=== PATIENT | male | born 1980 | race Caucasian/White ===

== ENCOUNTER 2016-12-31 00:08 | Inpatient (IN) | payer OTHER, MEDICAID ==
[2016-12-31] VITALS (34 sets, daily range): BP systolic 74–138; BP diastolic 47–98; PULSE 60–94; RESP 11–23; O2SAT 93–100
[~2016-12-31] VITALS: Ht 165.1 cm; Wt 97.3 kg
[~2016-12-31 00:08] MED LIST: CRB200TCR PO; CRB400TCR PO; GABA600T PO; LAMO100T PO; LORA1TAB PO; TAMS0.4C98 PO
--- NOTE | 2016-12-31 06:30 | NUR ---
ADMISSION NOTE MALE PT ADMITTED FOR RENAL EMBOLIZATION. DISCUSSED PLAN OF CARE WITH PT AND FAMILY. SEE ADMIT AND FLOW SHEET
[2016-12-31] MEDS ORDERED: 0.9% Sodium Chloride 1,000 ML ONE (07:25)
[2016-12-31] MEDS ORDERED: Heparin 1,000 Unit/mL 10 mL Inj ONE ×2 (07:26→10:33)
[2016-12-31 07:28] LABS: BASOPHILS % (AUTO) 0.3 % (0-3); EOSINOPHILS % (AUTO) 2.9 % (0-5); MONOCYTES % (AUTO) 15.2 % (4-12); Mean Corpuscular Hemoglobin 31.1 pg (27.0-35.0); Mean Corpuscular Volume 91.5 fL (81-100); NEUTROPHILS % (AUTO) 56.8 % (40-74); Platelet Count 172 bil/L (150-400)
[2016-12-31] MEDS ORDERED: LORA10CA PO (07:35)
[2016-12-31 07:51] LABS: INR 0.91 ratio
[2016-12-31] MEDS: 0.9% Sodium Chloride 1,000 ML IV SCH ×3 (08:00→21:22)
[2016-12-31] MEDS ORDERED: fentaNYL-PF 50 mCg/mL 2 mL Inj ONE ×2 (08:53→09:52)
[2016-12-31] MEDS ORDERED: levoFLOXacin 500 mg/100 mL D5W Premix IV ONE (09:06)
[2016-12-31] MEDS ORDERED: Heparin 5,000 Unit/mL Inj ONE (09:39)
[2016-12-31] MEDS ORDERED: Heparin 5,000 Units/500 mL NS Premix IV ONE (10:31)
--- NOTE | 2016-12-31 13:43 | NUR ---
AT 13:00 JAVIER PAULINO R.N ATTEMPTED TO ASSIST PATIENT WITH LUNCH TRAY BY INCREASING HEAD OF BED TO APPROX 30 DEGREES WHEN PATIENT EXPERIENCED SUDDEN HYPOTENSION, DIAPHORESIS AND COOL/ CLAMMY SKIN ON FOREHEAD. NORMAL SALINE BEGAN BOLUS, WITH COMPLETION OF 1 LITRE BAG. PT ASHEN COLORED AT FIRST, NO COMPLAINTS GROIN PAIN, NO HEMATOMA ON PALPATION AND NO C/O NAUSEA OR OTHERWISE FEELING FAINT. DR WONG CONTACTED, ULTRASOUND OF GROIN COMPLETED AND PRELIMINARY RESULT NEGATIVE FOR FEMORAL BLEED FROM RIGHT FEMORAL ACCESS SITE. HCT SENT ALSO. WITHIN 15 MINUTES PATIENT BACK TO BASELINE WITH IMPROVEMENT IN COLOR TO BASELINE. PT PLACED FLAT NOW FROM TRENDELENBERG POSITION DURING EVENT. PATIENT'S MOTHER AT BEDSIDE AND UPDATED ACCORDINGLY.
--- NOTE | 2016-12-31 14:13 | NUR ---
HCT RESULT CALLED TO DR. WONG EARLIER, THERE HAS BEEN A 5.3 POINT DECREASE IN HCT SINCE THIS AM. PT TAKEN TO CT.DR WONG HERE TO SEE PATIENT AND HIS MOM. THERE IS SOME BLEEDING AROUND KIDNEY.TYPE AND CROSS 4 UNITS ORDERED, PT WILL BE ADMITTED TO HOSPITAL. STAT HCT ORDERED FOR NOW.PT STABLE, CONVERSANT, WARM AND DRY. HE IS KEPT NPO.
--- NOTE | 2016-12-31 14:38 | DRSVH ---
PROCEDURE: 1. Left renal 1st order selective arteriography. 2. Super selective 4th order arteriography of a left inferior pole renal artery branch arising from t he superior branch of the left renal artery. 3. Embolization of a 4th order arterial branch arising from the superior branch of the left renal art asndra. 4. Superselective 6th order arteriography of a left inferior pole renal artery branch arising from th e inferior branch of the left renal artery. 5. Embolization of a 6th order arterial branch arising from the inferior branch of the left renal art sandra. 6. Conscious sedation x164 minutes. INDICATIONS: Tuberous sclerosis; renal angiomyolipomas. COMPARISON: [facility], XA, EMBOLIZATION VIA CATH, 08/23/2008, 13:07. [facility], CT, ABDOMEN W&WO CONTRAST, 10/07/2016, 11:24. [facility], CT, ABDOMEN WITH CONTRAST, 12/28/2013, 9:34. TECHNIQUE: Informed, written consent from the patient was obtained prior to the procedure. Patient wa s brought to the angiography suite, and conscious sedation was administered intravenously by [facility] staff, while continuous cardiorespiratory monitoring was performed. Maximal sterile barrier t echnique, hand hygiene and skin preparation were followed. A mask, sterile gown, sterile gloves, a la rge sterile sheet, hand hygiene, and 2% chlorhexidine or iodine was utilized for skin antisepsis. The bilateral groins were prepped and draped sterilely, and the skin and subcutaneous tissues overlying the right common femoral artery were infused with lidocaine. The right common femoral artery was acce ssed retrograde with a micropuncture set. A 6 Irish sheath was advanced. A 6 Irish C2 guide cathete r was advanced and was used to select the left renal artery, which was injected for selective renal a rteriography. A 4 Irish microcatheter was advanced through the guide catheter over an 014 wire into a 4th order arterial branch arising from the superior branch of the left renal artery and was injecte d for superselective arteriography of an inferior pole vessel. Embolization with [place] material was pe rformed until static flow was obtained within this branch. Subsequently, the 4 Irish microcatheter w as used to select a 6th order arterial branch arising from the inferior branch of the left renal christina ry supplying the inferior pole. Embolization with [place] material was performed until static flow was o btained. Repeat angiography was performed. FLUOROSCOPY TIME: 40.4 minutes FINDINGS: Embolization coils within the interpolar kidney are present secondary to prior embolization procedure. There are multifocal regions of abnormal vasculature throughout the left renal parenchyma , indicating the patient's known multifocal angiomyolipomas, largest of which are in the inferior bubba e. Injection of the 4th order vessel arising from the superior branch of the left renal artery demons trates abnormal vasculature within the inferior pole, consistent with the angiomyolipoma, with resolu tion of filling of this branch following embolization. Injection of the 6th order vessel arising from the inferior branch of the left renal artery demonstrates abnormal vasculature and pseudoaneurysm fo rmation within the inferior pole, with no further flow in this vessel following embolization. IMPRESSION: 1. Status post embolization of 2 angiomyolipomas within the inferior pole, one of which is supplied b y a 4th order branch of the superior moiety of the left renal artery, the other of which is supplied by a 6th order branch of the inferior moiety of the left renal artery. Dictated by: Elijah Rice M.D. on 12/31/2016 at 14:00 Approved by: Elijah Rice M.D. on 12/31/2016 at 14:36
--- NOTE | 2016-12-31 14:43 | DRSVH ---
PROCEDURE: CT KUB ([id number]) INDICATIONS: POST PROCEDURE TECHNIQUE: Noncontrast 5 mm thick sections acquired from the diaphragms to the symphysis. 5 mm thick coronal an d sagittal reformats were then performed. For radiation dose reduction, the following was used: aut omated exposure control, adjustment of mA and/or kV according to patient size. COMPARISON: [facility], CT, ABDOMEN W&WO CONTRAST, 10/07/2016, 11:24. [facility], X A, EMBOLIZATION ARTERIAL SYSTEM, 12/31/2016, 9:04. FINDINGS: Image quality: Excellent. Lung bases: Lung bases are clear. Heart size is normal. Urinary system: Multiple bilateral fat-containing renal masses are present, largest of which are loc ated within the left interpolar and inferior pole kidney, as before. There are embolization coils wit hin the left interpolar kidney as before. There is new high density embolic material within 2 separat e vessels within the inferior pole left kidney. There is a new, small to moderate amount of left warren nephric high density fluid. There is extravasated contrast surrounding the exophytic angiomyolipoma i nvolving the inferior pole left kidney, which was embolized prior to the examination. Other solid organs: Liver and spleen are normal in size. Gallbladder is within normal limits. Panc reas is normal in contours. No adrenal nodules. Peritoneum and bowel: Unenhanced bowel loops demonstrate normal wall thickness and caliber. No free fluid or air. Nodes and vessels: No retroperitoneal or mesenteric adenopathy by size criteria. Aorta and inferior vena cava are normal in caliber. Abdominal wall: No ventral hernias. Pelvis: No free pelvic fluid. No inguinal hernias or adenopathy. Bones: No suspicious bony lesions. Scattered benign-appearing sclerotic foci within the lumbosacral spine are present. No vertebral body compression fractures. IMPRESSION: 1. [id number] amount of left perinephric hemorrhage, which likely occurred prior to completion of embolization of the inferior pole angiomyolipoma. Serial hematocrits will be monitored, with repe at imaging, if clinically warranted. Patient will be admitted for overnight observation. Dictated by: Elijah Rice M.D. on 12/31/2016 at 14:37 Approved by: Elijah Rice M.D. on 12/31/2016 at 14:42
--- NOTE | 2016-12-31 14:51 | DRSVH ---
PROCEDURE: US DUPLEX DOPPLER UNILATERAL LEG ARTERIES, RIGHT INDICATIONS: POST PROCEDURE TECHNIQUE: Color and pulse Doppler interrogation was performed of the right lower extremity arterial system, wit h image documentation. COMPARISON: None. FINDINGS: Limited sonography of the right groin demonstrates no abnormalities. No fluid collection or masses are seen. Normal appearance of the right common femoral artery and vein as is demonstrated with spec tral and color-flow Doppler. IMPRESSION: No right groin pseudoaneurysm. Dictated by: Mario Daniel [facility] Interpreted: Nancy Amanda MD on 12/31/2016 at 14:50 Transcribed by: ARLEN on 12/31/2016 at 14:51 Approved by: Nancy Amanda MD, PhD on 12/31/2016 at 16:28
--- NOTE | 2016-12-31 17:00 | NUR ---
TRANSFER NOTE TRANSFERED TO CCU. REPORT GIVEN
[2016-12-31] MEDS ORDERED: Ondansetron 2 mg/mL 2 mL Inj IVPUSH PRN (17:15)
[2016-12-31] MEDS ORDERED: Alum-Mag Hydrox-Simeth 30 mL Suspension PO PRN (17:15)
[2016-12-31] MEDS ORDERED: Polyethylene Glycol (PEG) 17 Gm Powder PO PRN (17:15)
--- NOTE | 2016-12-31 17:24 | PCM.HPMED ---
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 They were monitoring the angiomyolipoma AMLs) in his kidneys due to known complications of bleeding despite lesions typically benign. There were 3 dominant AMLs on the LEFT kidney: superior mass is approx 7 cm, anterior and lower pole mass is approx 5 cm, lower pole and posterior is approx 5 cm. Plan was to have Interventional Radiologist ablate these dominant masses and was scheduled for this procedure today I received a call from Dr Rice to admit the patient as post operative labs showed some drop in HCT and also nurses noted some brief episode of hypotension. He performed an ultrasound of the groin and showed no pseudoaneurysm and a CT scan confirmed finding of left perinephric hemorrhage. Patient is not currently on any blood thinners and no history of bleeding. Review of Systems: Pertinent positives as noted in HPI. All other systems were reviewed and are negative Allergies Coded Allergies: Penicillins (Verified Allergy, Mild, 12/31/16) cefaclor (Verified Allergy, Mild, 12/31/16) Uncoded Allergies: CEPHALOSPORIN (Allergy, Mild, 07/30/09) Home Medications From Rio Lee [phone] 1980 11/11/2016 01:15 PM Page: 10/08 Lamictal (Lamotrigine) 100 Mg Tablet prescribed by outside provider Lorazepam 1 Mg Tablet prescribed by outside provider Neurontin (Gabapentin) 600 Mg Tablet prescribed by outside provider tamsulosin 0.4 mg capsule take 1 capsule by oral route every day Tegretol Xr (Carbamazepine) 400 Mg Tab Er 12H prescribed by outside provider Tegretol XR 200 mg tablet,extended release take 1 tablet by oral route every 12 hours PMH Tuberous Sclerosis Seizure disorder Brain tumor as an Renal Angiomyolipoma . Surgical History Left kidney tumor ablation Family History Father had Tuberous sclerosis Social History Hx Alcohol Use: No Hx Substance Use: No Hx Tobacco Use: No Living Arrangement: with Family (lives with Mom) Exam Vital Signs Vital Sign - Last Date Time Temp Pulse Resp B/P Pulse Ox O2 Delivery O2 Flow Rate FiO2 12/31/16 17:00 87 16 121/76 100 Room Air 12/31/16 11:36 36.9 Exam General: Alert, Oriented X3, Cooperative, No acute Distress Eyes: PERRLA, Scleral Anicteric Mouth: Mouth Normal, Mucous Membranes Moist/Coaling Neck: Supple, no Thyromegaly, trachea central. Chest & Lungs: Clear to auscultation & percussion, No adventitious breath sounds, no crackles, no wheeze Cardiovascular: Normal S1, Normal S2, No Murmurs/Rubs/Gallops, Regular Rate/ Rhythm, (No JVD, no peripheral edema) Pulses: Radial (present and equal), Dorsalis Pedi (present and equal) Abdomen: Soft, Non-tender, Non-distended, Normoactive bowel tones. Musculoskeletal: Unremarkable. Normal range of motion, no swollen or erythematous joints Extremities: No edema, no cyanosis, no clubbing. Skin: No rashes. Warm and dry, no erythematous areas. typical findings of Tuberous sclerosis of bumps on his face Neurological: Grossly neurologically intact, Normal Speech, Sensation Intact Chronically right hand and arm weakness with deformity of wrist Lymphatic: Lymph nodes Cervical and Axillary not palpable. Lab and Diagnostics Labs Laboratory Tests Test 12/31/16 07:00 12/31/16 13:16 12/31/16 14:50 12/31/16 16:52 White Blood Count 3.8th/mm3 (3.8-10.1) Red Blood Count 4.82mil/mm3 (4.40-5.80) Hemoglobin 15.0g/dL (13.8-17.2) Hematocrit 44.1% (41.0-50.0) 38.7% (41.0-50.0) 40.8% (41.0-50.0) 38.9% (41.0-50.0) Mean Corpuscular Volume 91.5fL (81-100) Mean Corpuscular Hemoglobin 31.1pg (27.0-35.0) Mean Corpuscular Hemoglobin Concent 34.0% (32.0-37.0) Red Cell Distribution Width 11.4% (12.3-15.4) Platelet Count 172bil/L (150-400) Neutrophils (%) (Auto) 56.8% (40-74) Lymphocytes (%) (Auto) 24.5% (14-46) Monocytes (%) (Auto) 15.2% (4-12) Eosinophils (%) (Auto) 2.9% (0-5) Basophils (%) (Auto) 0.3% (0-3) Prothrombin Time 9.7sec (8.1-12.5) Prothromb Time International Ratio 0.91ratio Sodium Level 142mEq/L (134-144) Potassium Level 4.3mEq/L (3.5-5.2) Chloride Level 104mEq/L (97-108) Carbon Dioxide Level 23mmol/L (18-29) Blood Urea Nitrogen 15mg/dL (6-20) Creatinine 1.04mg/dL (0.76-1.27) Estimat Glomerular Filtration Rate 85mL/min (>59) Glucose Level 104mg/dL (60-99) Calcium Level 9.5mg/dL (8.5-10.1) Result Diagram: 12/31/16 1652 12/31/16 0700 X-Rays, CTs and MRIs CT KUB 12/31 IMPRESSION: 1. [id number] amount of left perinephric hemorrhage, which likely occurred prior to completion of embolization of the inferior pole angiomyolipoma. Serial hematocrits will be monitored, with repeat imaging, if clinically warranted. Patient will be admitted for overnight observation. Dictated by: Elijah Rice M.D. on 12/31/2016 at 14:37 Approved by: Elijah Rice M.D. 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 Present on admission Possible due to procedure. No evidence of groin pseudoaneurysm on ultrasound. No evidence of gastrointestinal bleeding - case discussed with Dr Rice plans to monitor in hospital - plan to repeat imaging if Hgb continues to drop indicating ongoing bleeding 2. Acute anemia due to blood loss. Present on admission - trending H/H every q 4 hours - transfusion planned if Hgb < 7 or symptomatic including hypotension 3. Left Kidney multiple angiomyolipoma s/p Status post embolization of 2 angiomyolipomas within the inferior pole, - post operative orders as per Dr Rice - follow up with Urology clinic as outpatient 4. Tuberous Sclerosis with Seizure disorder Mother reported patient not having any seizure episodes recently - continue Lamictal, Tegretol and Ativan PRN - Acetaminophen as needed for mild pain/fever/headache - Bowel regimen as needed - Antiemetic as needed Patient admitted under inpatient status with expected length of stay > 2 midnights for severity of present symptoms, complexities of treatment plan and risk for adverse event . Resuscitation Status: CPR: Attempt Resuscitation Alfa Theodore MD Dec 31, 2016 17:24
[2016-12-31] MEDS ORDERED: oxyCODONE-Acetamin 5-325 mg Tablet PO PRN (17:35)
--- NOTE | 2016-12-31 18:20 | NUR ---
Transfer.. Received @ 1730 from [facility] post embolization of kidney. Pt arrived in stable condition and states his pain is better now. VSS and R groin site remains without bleeding or hematoma. Dr Holley notified of HCT. He ok'd pt to start on his diet this evening. Family at the bedside and oriented to CCU and routines.
--- NOTE | 2016-12-31 19:13 | NUR ---
Emesis.. Pt started eating with family assist, and was noted to have a mod amt of emesis. Med with Zofran and now feels better, without any further nausea or emesis. HR and B/P remained stable throughout emesis and R groin site stable.
[2016-12-31] MEDS: carBAMazepine 200 mg ER12 Tablet PO SCH (21:22)
[2016-12-31] MEDS: lamoTRIgine 100 mg Tablet PO SCH (21:22)
[2016-12-31] MEDS ORDERED: carBAMazepine 200 mg ER12 Tablet PO SCH (21:40)
[2016-12-31] MEDS ORDERED: LORazepam 1 mg Tablet PO PRN (21:40)
[2016-12-31] MEDS ORDERED: CARBAMAZEPINE 400 MG PO SCH (21:40)
[2016-12-31] MEDS ORDERED: lamoTRIgine 100 mg Tablet PO SCH (21:40)
[2017-01-01 00:04] VITALS: BP 158/98; PULSE 106; RESP 21; O2SAT 97
[2017-01-01 04:00] VITALS: BP 151/97; PULSE 105; RESP 15; O2SAT 95
[2017-01-01] MEDS: 0.9% Sodium Chloride 1,000 ML IV SCH (05:05)
--- NOTE | 2017-01-01 05:30 | NUR ---
Potential Risk for bleeding Stable H/H , Rt groin puncture site with CDI drsg, no bleeding, no hematoma, SR-ST, BP stable. Pt ate 100% of dinner, adequate uo.
[2017-01-01] MEDS: carBAMazepine 200 mg ER12 Tablet PO SCH (08:12)
[2017-01-01] MEDS: lamoTRIgine 100 mg Tablet PO SCH (08:14)
[2017-01-01 08:18] VITALS: BP 151/105; PULSE 107; RESP 16; O2SAT 98
[2017-01-01 08:30] VITALS: PULSE 105
[2017-01-01] MEDS ORDERED: GABAPENTIN 1200 MG PO SCH (08:30)
[2017-01-01 12:00] VITALS: BP 141/98; PULSE 108; RESP 22; O2SAT 98
[2017-01-01] MEDS ORDERED: OXYC1TAB24 PO (12:30)
--- NOTE | 2017-01-01 12:44 | PCM.DIMED ---
Kenneth Hugo DO 01/01/17 1244: Discharge Instructions Date of Service Jan 01, 2017 Dates of Hospitalization Dec 31, 2016 at 17:04 Discharge Diagnosis Discharge Diagnosis 1. Acute Left perinephric hemorrhage 2. Acute anemia due to blood loss 3. Left Kidney multiple angiomyolipoma s/p Status post embolization of 2 angiomyolipomas within the inferior pole, 4. Tuberous Sclerosis with Seizure disorder Medication Instructions Please continue to take all your regularly prescribed home medications as directed. You have been given a short course of pain medication which should be limited to only as necessary. Hydrocodone-acetaminophen 5/325mg every 8 hours as needed for pain Test Results Interventional radiology embolization PROCEDURE: 1. Left renal 1st order selective arteriography. 2. Super selective 4th order arteriography of a left inferior pole renal artery branch arising from the superior branch of the left renal artery. 3. Embolization of a 4th order arterial branch arising from the superior branch of the left renal artery. 4. Superselective 6th order arteriography of a left inferior pole renal artery branch arising from the inferior branch of the left renal artery. 5. Embolization of a 6th order arterial branch arising from the inferior branch of the left renal artery. 6. Conscious sedation x164 minutes. IMPRESSION: 1. Status post embolization of 2 angiomyolipomas within the inferior pole, one of which is supplied by a 4th order branch of the superior moiety of the left renal artery, the other of which is supplied by a 6th order branch of the inferior moiety of the left renal artery. Dictated by: Elijah Rice M.D. on 12/31/2016 at 14:00 Approved by: Elijah Rice M.D. on 12/31/2016 at 14:36 Diet Other (Ketogenic diet if possible) Activity Limited until seen by PCP (please avoid over exertion for the next week as your kidney heals) Call your provider Fever or Chills, Shortness of breath, Bleeding, Chest pain, Vomitting, Excessive diarrhea, Weakness (unilateral), Other (worsening fatigue) Patient Instructions Please limit your physical exertion and do not overdo any physical activities for the next week until seen by your PCP. Follow-up plan Please follow-up with your regular primary care physician Dr. Fulton within the next week. Please follow up with your urologist Dr. Arthur next week for further evaluation after your interventional radiologist preformed embolization procedure. Follow-up Provider: Aakash Fulton MD Follow-up with PCP in: 1 week Provider: Perla Arthur MD Follow-up in: 1 week Natalya Sarah DO 01/01/17 1821: Discharge Instructions Attending's Statement The patient was seen and examined together with Dr. Vargas on 01/01/17 and I agree with the history, exam and plan as outlined in the note above. Kenneth Hugo DO Jan 01, 2017 12:44 Natalya Sarah DO Jan 01, 2017 18:21
--- NOTE | 2017-01-01 13:56 | NUR ---
Right groin site with 2x2 and te[address] in place, no sign of bleeding or hematoma, no pain at puncture site. Distal pulses strong and equal bilaterally. Right flank discomfort 5/10 relieved with one oxycodone/APAP this morning. Ambulated with SBA for the length of malone and back without difficulty. Voiding QS, no nausea, tolerates PO well. Urine is clear and yellow. VSS, blood pressure 159/104 this morning prior to pain medication, down to 128/84 afterwards. Discharge instructions reviewed, questions answered. Mother Tennille provides care and verbalizes understanding regarding discharge plan. Script given for pain medications. Follow up appointment made for renal service, PCP will contact pt for f/u.
--- NOTE | 2017-01-01 14:56 | PCM.PNMED ---
Subjective Date of Service Jan 01, 2017 Subjective overnight: Hemoglobin remained stable after the initial drop with no other acute events noted overnight Today: The patient denies any increasing abdominal pressure or distention and says that he is not really in any pain. The patient states he has not noticed any blood in his urine. The patient states that he will be ready to go after lunch if he is able to be discharged. Exam Vital Signs Vital Sign - Last Date Time Temp Pulse Resp B/P Pulse Ox O2 Delivery O2 Flow Rate FiO2 01/01/17 04:00 36.6 105 15 151/97 95 Room Air Intake and Output 12/31/16 12/31/16 01/01/17 Cumulative From/Thru 15:00 23:00 07:00 12/31/16 06:30 - 01/01/17 05:21 Intake Total 1000 ml 1570 ml 2570 ml Output Total 375 ml 1450 ml 1825 ml Balance 625 ml 120 ml 745 ml Intake Oral 0 ml 440 ml 440 ml IV Total 1000 ml 1130 ml 2130 ml Output Urine Total 375 ml 1450 ml 1825 ml # Bowel Movements 0 0 Exam General: Alert, Oriented X3, Cooperative, No acute Distress, 36-year-old man appearing mildly older than stated age with notable coarse facial features consistent with tuberous sclerosis Eyes: PERRLA, Scleral Anicteric, notable strabismus HENT: Mouth Normal, Mucous Membranes Moist/[place], nose has small consolidated tuberosities similar to but more exaggerated than rhinophyma Neck: Supple, no Thyromegaly, trachea central. Chest & Lungs: Clear to auscultation & percussion, No adventitious breath sounds, no crackles, no wheeze Cardiovascular: Normal S1, Normal S2, No Murmurs/Rubs/Gallops, Regular Rate/ Rhythm, (No JVD, no peripheral edema) Pulses: Radial (present and equal), Dorsalis Pedi (present and equal) Abdomen: Soft, Non-tender, Non-distended, Normoactive bowel tones. Musculoskeletal: Unremarkable. Normal range of motion, no swollen or erythematous joints Extremities: No edema, no cyanosis, no clubbing. Skin: No rashes. Warm and dry, no erythematous areas. typical findings of Tuberous sclerosis most notable on face Neurological: Grossly neurologically intact, Normal Speech, Sensation Intact Chronically right hand and arm weakness with deformity of wrist Lymphatic: Lymph nodes Cervical and Axillary not palpable. IVs and Medications Medications Reviewed: Medications were reviewed in detail Lab and Diagnostics Result Diagram: 01/01/17 0445 12/31/16 0700 X-Rays, CTs and MRIs CT KUB 12/31 IMPRESSION: 1. [id number] amount of left perinephric hemorrhage, which likely occurred prior to completion of embolization of the inferior pole angiomyolipoma. Serial hematocrits will be monitored, with repeat imaging, if clinically warranted. Patient will be admitted for overnight observation. Dictated by: Elijah Rice M.D. on 12/31/2016 at 14:37 Approved by: Elijah Rice M.D. 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 Hospital Day 1 1.Acute Left perinephric hemorrhage. Present on admission, stable - Possible due to procedure. No evidence of groin pseudoaneurysm on ultrasound. No evidence of gastrointestinal bleeding - case discussed with Dr Rice with plan to monitor in hospital overnight -No drops in hematocrit since initial presentation patient will be safe to discharge home, interventional radiology has signed off 2. Acute anemia due to blood loss. Present on admission, stable -Hemoglobin monitored overnight 3. Left Kidney multiple angiomyolipoma s/p Status post embolization of 2 angiomyolipomas within the inferior pole, present on admission, stable - post operative orders as per Dr Rice - follow up with Urology clinic as outpatient 4. Tuberous Sclerosis with Seizure disorder - Mother reported patient not having any seizure episodes recently - continue Lamictal, Tegretol and Ativan PRN - Acetaminophen as needed for mild pain/fever/headache - Bowel regimen as needed - Antiemetic as needed Disposition: The patient is remained hemodynamically stable with stable hemoglobin and hematocrit. He will be discharged home later today Pain Evaluation: Adequate Pain Control Resuscitation Status: CPR: Attempt Resuscitation Time spent greater than 35 minutes Attending Statement The patient was seen and examined together with Dr. Vargas on 01/01/17 and I agree with the history, exam and plan as outlined in the note above. Kenneth Hugo DO Jan 01, 2017 06:55 Natalya Sarah DO Jan 01, 2017 18:25
--- NOTE | 2017-01-01 15:00 | PCM.DC.MED ---
Discharge Summary Date of Service Jan 01, 2017 Dates of Hospitalization Date of Hospital Admission Dec 31, 2016 at 17:04 Date of Discharge: Jan 01, 2017 Providers: Admitting Physician: Alfa Theodore MD Primary Care Physician: Aakash Fulton MD Attending Physician: Alfa Theodore MD Diagnosis at Time of Discharge Diagnosis at Time of Discharge 1. Acute Left perinephric hemorrhage 2. Acute anemia due to blood loss 3. Left Kidney multiple angiomyolipoma s/p Status post embolization of 2 angiomyolipomas within the inferior pole, 4. Tuberous Sclerosis with Seizure disorder Consultations Interventional radiology Procedures XRay, CTs & MRIs CT KUB 12/31 IMPRESSION: 1. [id number] amount of left perinephric hemorrhage, which likely occurred prior to completion of embolization of the inferior pole angiomyolipoma. Serial hematocrits will be monitored, with repeat imaging, if clinically warranted. Patient will be admitted for overnight observation. Dictated by: Elijah Rice M.D. on 12/31/2016 at 14:37 Approved by: Elijah Rice M.D. on 12/31/2016 at 14:42 Invasive Procedures Elective angiolipoma arterial embolization PROCEDURE: 1. Left renal 1st order selective arteriography. 2. Super selective 4th order arteriography of a left inferior pole renal artery branch arising from the superior branch of the left renal artery. 3. Embolization of a 4th order arterial branch arising from the superior branch of the left renal artery. 4. Superselective 6th order arteriography of a left inferior pole renal artery branch arising from the inferior branch of the left renal artery. 5. Embolization of a 6th order arterial branch arising from the inferior branch of the left renal artery. 6. Conscious sedation x164 minutes. IMPRESSION: 1. Status post embolization of 2 angiomyolipomas within the inferior pole, one of which is supplied by a 4th order branch of the superior moiety of the left renal artery, the other of which is supplied by a 6th order branch of the inferior moiety of the left renal artery. Dictated by: Elijah Rice M.D. 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 They were monitoring the angiomyolipoma AMLs in his kidneys due to known complications of bleeding despite lesions typically benign. There were 3 dominant AMLs on the LEFT kidney: superior mass is approx 7 cm, anterior and lower pole mass is approx 5 cm, lower pole and posterior is approx 5 cm. Plan was to have Interventional Radiologist ablate these dominant masses and was scheduled for this procedure today Dr Rice requested that this patient be admitted as post operative labs showed some drop in HCT and also nurses noted some brief episode of hypotension. Dr. Rice performed an ultrasound of the groin and showed no pseudoaneurysm and a CT scan confirmed finding of left perinephric hemorrhage. 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 Hospital Day 1 1.Acute Left perinephric hemorrhage. Present on admission, stable - Possible due to procedure. No evidence of groin pseudoaneurysm on ultrasound. No evidence of gastrointestinal bleeding - case discussed with Dr Rice with plan to monitor in hospital overnight -No drops in hematocrit since initial presentation patient will be safe to discharge home, interventional radiology has signed off 2. Acute anemia due to blood loss. Present on admission, stable -Hemoglobin monitored overnight 3. Left Kidney multiple angiomyolipoma s/p Status post embolization of 2 angiomyolipomas within the inferior pole, present on admission, stable - post operative orders as per Dr Rice - follow up with Urology clinic as outpatient 4. Tuberous Sclerosis with Seizure disorder - Mother reported patient not having any seizure episodes recently - continue Lamictal, Tegretol and Ativan PRN - Acetaminophen as needed for mild pain/fever/headache - Bowel regimen as needed - Antiemetic as needed Disposition: The patient is remained hemodynamically stable with stable hemoglobin and hematocrit. He will be discharged home later today Exam Vital Signs (Last) Date Time Temp Pulse Resp B/P Pulse Ox O2 Delivery O2 Flow Rate FiO2 01/01/17 12:00 37.7 108 22 141/98 98 Room Air Exam General: Alert, Oriented X3, Cooperative, No acute Distress, 36-year-old man appearing mildly older than stated age with notable coarse facial features consistent with tuberous sclerosis Eyes: PERRLA, Scleral Anicteric, notable strabismus HENT: Mouth Normal, Mucous Membranes Moist/[place], nose has small consolidated tuberosities similar to but more exaggerated than rhinophyma Neck: Supple, no Thyromegaly, trachea central. Chest & Lungs: Clear to auscultation & percussion, No adventitious breath sounds, no crackles, no wheeze Cardiovascular: Normal S1, Normal S2, No Murmurs/Rubs/Gallops, Regular Rate/ Rhythm, (No JVD, no peripheral edema) Pulses: Radial (present and equal), Dorsalis Pedi (present and equal) Abdomen: Soft, Non-tender, Non-distended, Normoactive bowel tones. Musculoskeletal: Unremarkable. Normal range of motion, no swollen or erythematous joints Extremities: No edema, no cyanosis, no clubbing. Skin: No rashes. Warm and dry, no erythematous areas. typical findings of Tuberous sclerosis most notable on face Neurological: Grossly neurologically intact, Normal Speech, Sensation Intact Chronically right hand and arm weakness with deformity of wrist Lymphatic: Lymph nodes Cervical and Axillary not palpable. Test 12/31/16 07:00 01/01/17 11:55 White Blood Count 3.8th/mm3 (3.8-10.1) Red Blood Count 4.82mil/mm3 (4.40-5.80) Mean Corpuscular Volume 91.5fL (81-100) Mean Corpuscular Hemoglobin 31.1pg (27.0-35.0) Mean Corpuscular Hemoglobin Concent 34.0% (32.0-37.0) Red Cell Distribution Width 11.4% (12.3-15.4) Platelet Count 172bil/L (150-400) Neutrophils (%) (Auto) 56.8% (40-74) Lymphocytes (%) (Auto) 24.5% (14-46) Monocytes (%) (Auto) 15.2% (4-12) Eosinophils (%) (Auto) 2.9% (0-5) Basophils (%) (Auto) 0.3% (0-3) Prothrombin Time 9.7sec (8.1-12.5) Prothromb Time International Ratio 0.91ratio Sodium Level 142mEq/L (134-144) Potassium Level 4.3mEq/L (3.5-5.2) Chloride Level 104mEq/L (97-108) Carbon Dioxide Level 23mmol/L (18-29) Blood Urea Nitrogen 15mg/dL (6-20) Creatinine 1.04mg/dL (0.76-1.27) Estimat Glomerular Filtration Rate 85mL/min (>59) Glucose Level 104mg/dL (60-99) Calcium Level 9.5mg/dL (8.5-10.1) Hemoglobin 12.8g/dL (13.8-17.2) Hematocrit 38.3% (41.0-50.0) Discharge Medications Discharge Medications Carbamazepine (Tegretol Xr) 400 Mg Tabcr 400 MG PO BID (Reported) Carbamazepine (Tegretol Xr) 200 Mg Tablet.er 200 MG PO BID (Reported) Gabapentin (Neurontin) 600 Mg Tablet 1,200 MG PO BID (Reported) Lamotrigine (Lamictal) 100 Mg Tablet 100 MG PO BID (Reported) Loratadine (Claritin) 10 Mg Capsule 10 MG PO DAILY (Reported) Tamsulosin (Flomax) 0.4 Mg Capsule 0.4 MG PO DAILY (Reported) As needed Lorazepam (Lorazepam) 1 Mg Tablet 1 MG PO DIRECTED PRN PRN For Anxiety ( Reported) oxyCODONE-Acetaminophen 5-325 mg (oxyCODONE-Acetaminophen 5-325 mg) 1 Each Tablet 1 TAB PO TID PRN PRN For Pain Prescribed by: HIREN BENITEZ, DO Additional med instructions Please continue to take all your regularly prescribed home medications as directed. You have been given a short course of pain medication which should be limited to only as necessary. Hydrocodone-acetaminophen 5/325mg every 8 hours as needed for pain Followup Plan Disposition: Home Follow-up plan Please follow-up with your regular primary care physician Dr. Fulton within the next week. Please follow up with your urologist Dr. Arthur next week for further evaluation after your interventional radiologist preformed embolization procedure. Discharge Diet: Other (Ketogenic diet if possible) Discharge Activity: Limited until seen by PCP (please avoid over exertion for the next week as your kidney heals) Patient Instructions Please limit your physical exertion and do not overdo any physical activities for the next week until seen by your PCP. Follow-up Provider: Aakash Fulton MD Follow-up with PCP in: 1 week Provider: Perla Arthur MD Follow-up in: 1 week Time spent 35minutes Attending Statement The patient was seen and examined together with Dr. Vargas on 01/01/17 and I have added additional information to the note above. copies to: Aakash Fulton MD, Nicholas K DO Jan 01, 2017 14:58 Natalya Sarah DO Jan 01, 2017 18:24
== END 2017-01-01 13:40 | disposition home or self-care (01) | DRG 173 ==
LOC: SOUO 00:08 → CCU 17:04 → PCC 01-01 08:38
PROVIDERS: ADMIT Hospitalist; ATTEND Hospitalist
PROC: 04VA3DZ Restriction of Left Renal Artery with Intraluminal Device, Percutaneous Approach (ICD-10-PCS; principal; 2016-12-31)
DX: I95.81 Postprocedural hypotension (principal); D62 Acute posthemorrhagic anemia; Q85.1 Tuberous sclerosis; R58 Hemorrhage, not elsewhere classified; D17.71 Benign lipomatous neoplasm of kidney